=== PATIENT | female | born 1995 | race Caucasian/White ===

== ENCOUNTER 2017-01-08 19:47 | Emergency (ER) | payer SELFPAY ==
[2017-01-08 21:49] VITALS: BP 125/72
[2017-01-08] MEDS ORDERED: Sulfamethox/Trimethoprim DS 800/160* TAB PO ONE (22:04)
[2017-01-08] MEDS ORDERED: Phenazopyridine TAB* 100 MG PO ONE (22:05)
--- NOTE | 2017-01-08 22:12 | UC ---
Complaint Female HPI - HPI Summary HPI Summary: LOW BACK LOW ABDOMINAL PAIN , DISCOMFORT WITH URINATION 3 DAYS AGO. NO FEVER. NO CHANGES IN SEXUAL PARTNER. - History Of Current Complaint Chief Complaint: [facility] Stated Complaint: POSS UTI Time Seen by Provider: 01/08/17 21:37 Hx Obtained From: Patient Hx Last Menstrual Period: 2 WEEKS AGO Onset/Duration: Gradual Onset, Lasting Days, Still Present Timing: Intermittent Severity Initially: Mild Severity Currently: Moderate Character: Dull, Burning Aggravating Factor(s): Urination Associated Signs And Symptoms: Positive: Back Pain. Negative: Fever, Vaginal Bleeding/Discharge, Vaginal Discharge, Nausea, Vomiting(# Of Episodes =), Genital Swelling, Genital Blisters - Risk Factors Ectopic Risk Factor: Negative Ovarian Torsion Risk Factor: Negative - Allergies/Home Medications Allergies/Adverse Reactions: Allergies Allergy/AdvReac Type Severity Reaction Status Date / Time No Known Allergies Allergy Verified 01/08/17 21:48 Home Medications: Home Medications Cranberry (Vaccinium Macrocarp [Cranberry] 1 pow XX PRN 01/08/17 [History] PMH/Surg Hx/FS Hx/Imm Hx Previously Healthy: Yes Endocrine History Of: Denies: Diabetes, Thyroid Disease, Hyperthyroidism, Hypothyroidism Cardiovascular History Of: Denies: Cardiac Disorders, Hypertension Respiratory History Of: Reports: Asthma Neurological History Of: Denies: TIA, CVA, Dementia, Seizures, Migraine Psychological History Of: Denies: Anxiety, Depression - Surgical History Surgical History: Yes Surgery Procedure, Year, and Place: tonsils, - Family History Known Family History: Positive: Unknown, Hypertension, Other - depression - Social History Lives: With Family Alcohol Use: None Substance Use Type: None Smoking Status (MU): Current Every Day Smoker Type: Cigarettes Amount Used/How Often: 1 PACK/WEEK Have You Smoked in the Last Year: No Cessation Counseling: Patient Advised to Stop - Immunization History Most Recent Influenza Vaccination: declines Most Recent Tetanus Shot: 09/01/2014 Most Recent Pneumonia Vaccination: none Vaccination Up to Date: Yes Review of Systems Constitutional: Negative Skin: Negative Eyes: Negative ENT: Negative Respiratory: Negative Cardiovascular: Negative Gastrointestinal: Negative Genitourinary: Dysuria, Frequency, Urgency Motor: Negative Neurovascular: Negative Musculoskeletal: Negative Neurological: Negative Psychological: Negative All Other Systems Reviewed And Are Negative: Yes Physical Exam Triage Information Reviewed: Yes Appearance: Well-Appearing, No Pain Distress, Well-Nourished Vital Signs: Initial Vital Signs Temp 98.7 F 01/08/17 21:44 Pulse 94 01/08/17 21:44 Resp 16 01/08/17 21:44 BP 125/72 01/08/17 21:44 Pulse Ox 99 01/08/17 21:44 Vital Signs Reviewed: Yes Eye Exam: Normal Eyes: Positive: Conjunctiva Clear ENT Exam: Normal ENT: Positive: Normal ENT inspection, Hearing grossly normal, TMs normal Dental Exam: Normal Neck exam: Normal Neck: Positive: Supple, Nontender, No Lymphadenopathy Respiratory Exam: Normal Respiratory: Positive: Chest non-tender, Lungs clear, Normal breath sounds, No respiratory distress, No accessory muscle use Cardiovascular Exam: Normal Cardiovascular: Positive: RRR, No Murmur, Pulses Normal Abdominal Exam: Normal Abdomen Description: Positive: No Organomegaly, Soft. Negative: Nontender - SUPRAPUBIC TENDERNESS, CVA Tenderness (R), CVA Tenderness (L) Musculoskeletal Exam: Normal Musculoskeletal: Positive: Strength Intact, ROM Intact Neurological Exam: Normal Psychological Exam: Normal Skin Exam: Normal Complaint Female Dx - Differential Dx/Diagnosis Differential Diagnosis/HQI/PQRI: Cervicitis, Urinary Tract Infection Provider Diagnoses: URINARY TRACT INFECTION Discharge - Discharge Plan Condition: Stable Disposition: HOME Prescriptions: Phenazopyridine TAB* [Pyridium 100 mg TAB*] 100 mg PO TID PRN #15 tab PRN Reason: Pain Sulfamethox/Trimethoprim DS* [Bactrim DS 800/160 TAB*] 1 tab PO BID #10 tab Patient Education Materials: Urinary Tract Infection in Women (ED) Referrals: Jamshid Wade MD [Primary Care Provider] -
== END 2017-01-08 22:20 | disposition home or self-care (01) ==
LOC: UCEAST 19:47
DX: N39.0 Urinary tract infection, site not specified (principal); M54.5 Low back pain; Z32.02 Encounter for pregnancy test, result negative; F17.210 Nicotine dependence, cigarettes, uncomplicated
CPT/HCPCS: 81003; 84702; 87086; 99212; A9270-GY; G0463